=== PATIENT | male | born 1965 | race Caucasian/White ===

== ENCOUNTER 2023-04-03 15:19 | Emergency (ER) | payer OTHER, BC, SELFPAY ==
[2023-04-03 15:21] VITALS: BP 137/87; PULSE 97; RESP 16; TEMP 36.6; O2SAT 98; BMI 35.4
--- NOTE | 2023-04-03 15:38 | EDS_ITS ---
HPI <CHENCHO Lewis - Last Filed: 04/03/23 16:08> HPI - Fall History of Present Illness Chief Complaint: Fall Narrative Narrative: 58-year-old male presents with a Worker's Comp. injury. 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 Yesterday he was walking behind a machine and tripped over a hose that was on the ground catching himself with his right hand and on his right knee. No head injury. This morning when he woke up he had right low back pain worse with walking and when he told his boss was sent in for evaluation. He denies history of back problems. He has no pain rating down his lower extremities. No weakness, paresthesias, saddle anesthesia, bladder or bowel incontinence. PFSH <CHENCHO Lewis Last Filed: 04/03/23 16:08> PFSH Allergy/AdvReac Type Severity Reaction Status Date / Time No Known Allergies Allergy Verified 04/03/23 15:21 Social History Smoking Status: Unknown if ever smoked ROS <CHENCHO Lewis - Last Filed: 04/03/23 16:08> ROS ED ROS Narrative Neuro: Negative for motor/sensory dysfunction. Skin: Negative for wound. Musc: Negative for joint pain, swelling. EXAM <CHENCHO Lewis Last Filed: 04/03/23 16:08> Physical Exam Narrative Exam Narrative: CONST: Patient sitting in no acute distress. EYES: Normal inspection. NECK: Normal inspection. RESP: No respiratory distress, CTAB. CVS: Regular rate and rhythm, no murmur, no gallop. Back: Normal inspection, no midline tenderness. Tender right lumbar muscles. SKIN: Color normal, no rash, warm, dry, intact. EXTREMITIES: Normal appearance, full ROM upper and lower extremities, no te nderness. 2+ radial and DP pulses. Normal right knee extension, no laxity with anterior/posterior or varus or valgus stress. NEURO: Oriented x4. PSYCH: Normal affect. Const Vital Signs: 04/03/23 15:21 Temperature 97.8 F Temperature Source Temporal Pulse Rate 97 Respiratory Rate 16 Blood Pressure 137/87 H Blood Pressure Mean 103 Pulse Ox 98 Oxygen Delivery Method Room Air <Dr. De Ayala DO - Last Filed: 04/03/23 16:22> Physical Exam Const Vital Signs: 12/23/23 15:21 Temperature 97.8 F Temperature Source Temporal Pulse Rate 97 Respiratory Rate 16 Blood Pressure 137/87 H Blood Pressure Mean 103 Pulse Ox 98 Oxygen Delivery Method Room Air [facility] <CHENCHO Lewis - Last Filed: 04/03/23 16:08> [facility] Narrative Medical decision making narrative: Patient has acute right low back pain that started a day after a fall at work yesterday. No direct trauma to his back. He appears well and nontoxic. Vital signs stable. He is tender over the right lumbar muscles but has no midline tenderness. MSPs and reflexes are intact. He had caught himself with his right hand and right knee and states they are slightly sore but he has no evidence of trauma and no tenderness so no indication for extremity x-rays. Back pain is consistent with a lumbar strain and I recommended OTC pain relievers and ice. He was given workplace restrictions for limited bending/stooping and no lifting over 10 pounds for 1 week until follow-up with occupational health. He was discharged in stable condition. <Dr. De Ayala DO - Last Filed: 04/03/23 16:22> [facility] Narrative Medical decision making narrative: Patient has acute right low back pain that started a day after a fall at work yesterday. No direct trauma to his back. He appears well and nontoxic. Vital signs stable. He is tender over the right lumbar muscles but has no midline tenderness. MSPs and reflexes are intact. He had caught himself with his right hand and right knee and states they are slightly sore but he has no evidence of trauma and no tenderness so no indication for extremity x-rays. Back pain is consistent with a lumbar strain and I recommended OTC pain relievers and ice. He was given workplace restrictions for limited bending/stooping and no lifting over 10 pounds for 1 week until follow-up with occupational health. He was discharged in stable condition. This patient was seen with a PA/DATA COLLECTION SPECIALIST Individually assessed they patient including history and physical. I have reviewed everything on the chart that is available and agree with the documentation provided by the PA/DATA COLLECTION SPECIALIST including discussion about the assessment, treatment plan, discussion, and return precautions. Patient with mechanical fall with no direct trauma to the back complaining of back pain. He also has a mild injury to his right hand and right knee but states they are minimally sore. Is able to ambulate. Patient does not require imaging. We will give a work restrictions as above. Return precautions discussed. Impression: 1. Mechanical fall 2. Lumbar strain 3. Right hand contusion 4. Right knee contusion Lab Data Attestation: I reviewed the patient's lab results. Discharge Plan Triage Chief Complaint: Fall ED Midlevel Provider: [facility] ED Provider: De Ayala Dx/Rx/DC Orders Clinical Impression: Low back strain, Contusion of hand, right, Contusion of right knee Instructions: Back Safety: Lifting Primary Care Provider: [facility],[place] Activity Restrictions/Additional Instructions: Follow up with occupational health clinic Disposition Disposition: Home, Self Care
[2023-04-03 16:47] VITALS: BP 126/78; PULSE 64; RESP 14; TEMP 36.4; O2SAT 99
== END 2023-04-03 16:49 | disposition home or self-care (01) ==
PROVIDERS: Emergency Provider Student in an Organized Health Care Education/Training Program; Visit Provider Student in an Organized Health Care Education/Training Program
DX: S39.012A Strain of muscle, fascia and tendon of lower back, initial encounter (principal); S60.221A Contusion of right hand, initial encounter; S80.01XA Contusion of right knee, initial encounter; W18.09XA Striking against other object with subsequent fall, initial encounter; Y99.0 Civilian activity done for income or pay
CPT/HCPCS: 99282